=== PATIENT | male | born 1995 | race Hispanic/Latino ===

== ENCOUNTER 2019-07-03 11:58 | Emergency (ER) | payer OTHER ==
[~2019-07-03] VITALS: Ht 162.6 cm; Wt 90.7 kg
--- OUTSIDE RECORDS SUMMARY | 2019-07-03 12:01 | XMS REPORT ---
Author Author [facility] Address Unknown Phone Unavailable Care Team Providers Care Intermediate Frame Tender Name Role Phone Unavailable Unavailable Payers Payer Name Policy Type Policy Number Effective Date Expiration Date Problems This patient has no known problems. Allergies, Adverse Reactions, Alerts Allergy Name Allergy Type Status Severity Reaction(s) Onset Date Inactive Date Treating Clinician Comments No Known Allergies DA Active U 2018-08-06 00:00:00 Medications This patient has no known medications.
[2019-07-03] MEDS ORDERED: DOXYCYCLINE HY100 MG PO (12:26)
[2019-07-03] MEDS ORDERED: CEFTRIAXONE SOD 250 MG VIAL IM ONE (12:30)
[2019-07-03] MEDS ORDERED: CEFTRIAXONE SOD 500 MG VIAL ONE (12:37)
== END 2019-07-03 12:59 | disposition home or self-care (01) ==
LOC: FSED 11:58
DX: R30.0 Dysuria (principal); N34.1 Nonspecific urethritis
CPT/HCPCS: 81003; 87086; 99283; J0696